=== PATIENT | male | born 1995 | race Two or more races ===

== ENCOUNTER 2017-07-01 09:27 | Emergency (ER) | payer SELFPAY ==
[2017-07-01 10:23] LABS: INFLUENZA A PATIENT NEGATIVE (NEGATIVE); INFLUENZA B PATIENT NEGATIVE (NEGATIVE); OBC FLU VALID
[2017-07-01] MEDS: ACETAMINOPHEN 500 MG TABLET PO ×2 (11:05)
== END 2017-07-01 11:07 | disposition home or self-care (01) ==
LOC: ER 09:27
DX: J18.9 Pneumonia, unspecified organism (principal)
CPT/HCPCS: 71046; 87804; 87804-59; 99285-25